=== PATIENT | male | born 1990 | race African-American/Black ===

== ENCOUNTER 2017-05-20 16:39 | Emergency (ER) | payer OTHER ==
[~2017-05-20] VITALS: Ht 182.9 cm; Wt 82.4 kg
[2017-05-20] MEDS ORDERED: KEFLEX500 MG PO (18:24)
[2017-05-20 18:38] VITALS: BP 149/79
== END 2017-05-20 18:40 ==
LOC: EME 16:39
DX: S51.022A Laceration with foreign body of left elbow, initial encounter (principal); S60.552A Superficial foreign body of left hand, initial encounter; V68.5XXA Driver of heavy transport vehicle injured in noncollision transport accident in traffic accident, initial encounter; Y92.411 Interstate highway as the place of occurrence of the external cause; Z53.20 Procedure and treatment not carried out because of patient's decision for unspecified reasons; F17.200 Nicotine dependence, unspecified, uncomplicated
CPT/HCPCS: 73080; 73130; 99281; 99284